=== PATIENT | female | born 1985 | race Caucasian/White ===

== ENCOUNTER 2016-12-14 09:23 | Emergency (ER) | payer OTHER ==
[2016-12-14 10:13] LABS: % IMMATURE GRANULYOCYTES 0.2 % (0.0-1.1); ABSOLUTE IMMATURE GRANULOCYTES 0.01 10^3/uL (0.00-0.10); ADD DIFF? NO; ADD MORPH? NO; ADD SCAN? NO; ATYPICAL LYMPHOCYTE FLAG 20 (0-99); FRAGMENT RBC FLAG 0 (0-99); HEMATOCRIT 39.3 % (38.0-47.0); HEMOGLOBIN 13.6 g/dL (12.6-16.3); LEFT SHIFT FLG 0 (0-99); LIPEMIA HEMOLYSIS FLAG 90 (0-99); MEAN CELL HEMOGLOBIN 34.2 pg (27.9-34.1); MEAN CELL HEMOGLOBIN CONCENTR. 34.6 g/dL (32.4-36.7); MEAN CELL VOLUME 98.7 fL (81.5-99.8); MEAN PLATELET VOLUME 11.8 fL (8.7-11.7); PLATELET CLUMPS FLAG 30 (0-99); PLATELET COUNT 176 10^3/uL (150-400); RED BLOOD CELL COUNT 3.98 10^6/uL (4.18-5.33); RED CELL DISTRIBUTION WIDTH 11.9 % (11.5-15.2)
[2016-12-14 10:32] LABS: ANION GAP 9 mEq/L (8-16); CALCIUM 9.4 mg/dL (8.5-10.4); CARBON DIOXIDE 23 mEq/l (22-31); CHLORIDE 108 mEq/L (97-110); CREATININE 0.6 mg/dL (0.6-1.0); GLOMERULAR FILTRATION RATE > 60; GLUCOSE 87 mg/dL (70-100); POTASSIUM 4.2 mEq/L (3.5-5.2); SODIUM 140 mEq/L (134-144)
[2016-12-14 10:38] LABS: ALBUMIN 4.1 g/dL (3.5-5.0); BILIRUBIN,TOTAL 0.8 mg/dL (0.1-1.4); BILIRUBIN-CONJUGATED 0.3 mg/dL (0.0-0.5); BILIRUBIN-UNCONJUGATED 0.5 mg/dL (0.0-1.1); TOTAL PROTEIN 6.6 g/dL (6.3-8.2)
[2016-12-14] MEDS ORDERED: PANTOPRAZOLE SODIUM 40 MG in NS 100 ML IV ONE (10:42)
[2016-12-14] MEDS ORDERED: NS 1,000 ML IV ONE (10:43)
--- NOTE | 2016-12-14 10:49 | EDPHY ---
H & P Smoking Status: Never smoked Time Seen by Provider: 12/14/16 10:09 HPI/ROS: CHIEF COMPLAINT: Dysphagia HISTORY OF PRESENT ILLNESS: 31-year-old female presents to the emergency department complaining of dysphagia and indigestion over last few days. Patient denies any known trauma or injury. She states that any time she tries to eat or drink anything she developed discomfort in her chest. She has no other abdominal pain. She was constipated last week and took some medication for this. She states that she is able to drink very little because the discomfort. She has vomited food and water back up. She denies any other chest pain. She denies diarrhea. Denies neck or back pain. Last menstrual period was 12/01/2016. She has tried taking [id number] Prilosec for last 2 days without relief. REVIEW OF SYSTEMS: Constitutional: No fever, no chills. Eyes: No double or blurry vision. ENT: No sore throat. Respiratory: No cough, no shortness of breath. Cardiac: As above Gastrointestinal: No abdominal pain, vomiting or diarrhea. Genitourinary: No dysuria. Musculoskeletal: No neck or back pain. Skin: No rashes. Neurological: No headache. (AyleenRoxann jarvis) Past Medical/Surgical History: Negative (AyleenRoxann jarvis) Social History: and lives in [place], she works as a nurse. (AyleenRoxann jarvis) Physical Exam: General Appearance: Alert, no distress. Vital signs are stable. Eyes: Pupils equal and round. Extraocular motions are all intact. ENT: Mouth: Mucous membranes moist. Respiratory: No wheezing, rhonchi, or rales, lungs are clear to auscultation. Cardiovascular: Regular rate and rhythm. Gastrointestinal: Abdomen is soft and nontender, no masses, no rebound or guarding, bowel sounds normal. No CVA tenderness bilaterally. Neurological: Alert and oriented x 3, cranial nerves II through XII grossly intact Skin: Warm and dry, no rashes. Musculoskeletal: Nontender to palpate along the cervical, thoracic or lumbar spine. Neck is supple. Extremities: Full range of motion and no peripheral edema. Psychiatric: Patient is oriented X 3, there is no agitation. (AyleenRoxann jarvis) Constitutional: Initial Vital Signs Temperature (C) 36.7 C 12/14/16 09:26 Heart Rate 68 12/14/16 09:26 Respiratory Rate 20 12/14/16 09:26 Blood Pressure 141/90 H 12/14/16 09:26 O2 Sat (%) 99 12/14/16 09:26 O2 Delivery Mode Room Air Allergies/Adverse Reactions: No Known Allergies Allergy (Unverified 12/14/16 09:26) Home Medications: Medication Instructions Recorded Gaviscon Liquid 12/14/16 Pepcid 12/14/16 Medical Decision Making - Diagnostics Imaging: I viewed and interpreted images myself ED Course/Re-evaluation: 31-year-old female presents to the emergency department with what she is describing his bad heartburn for last few days. Her laboratory studies were unremarkable. Chest x-rays unremarkable. I initially spoke with Dr. Gordon who states that he was on-call for the emergency department, however because the patient is unassigned in his never seen a chamber magistrate, he recommended calling G[facility]ology of the [facility] [place]. I spoke with Dr. Gutierres was on-call for [facility] of [facility] and he agreed to see this patient tomorrow. They will likely schedule for endoscopy. Patient was instructed to return if she developed difficulty swallowing or breathing, or if she felt worse in any way. The case was also discussed with Dr. Janie Kang, who did not directly evaluate the patient but agrees with treatment and plan. (Roxann Donald) Differential Diagnosis: Including but not limited to GERD, peptic ulcer disease, esophageal stricture, esophagitis, cholecystitis, cholelithiasis, pancreatitis, H pylori (Roxann Donald) Other Provider: The patient was evaluated and managed by the Physician Machine Filler Servicer/ Nurse Practitioner. I discussed the patient's presentation and course with the midlevel provider with them and agree with the evaluation. My co-signature indicates that I have reviewed this chart and I agree with the findings and plan of care as documented. I am the secondary supervising physician. (Janie Kang) - Data Points Laboratory Results: Laboratory Results 12/14/16 09:55 12/14/16 09:55 Medications Given: Discontinued Medications Pantoprazole Sodium 40 mg/ (Sodium Chloride) 100 mls @ 200 mls/hr IV EDNOW ONE Stop: 12/14/16 11:11 Last Admin: 12/14/16 11:10 Dose: 100 mls Sodium Chloride (Ns) 1,000 mls @ 0 mls/hr IV ONCE ONE PRN Reason: Wide Open Stop: 12/14/16 10:44 Last Admin: 12/14/16 11:10 Dose: 1,000 mls Departure - Departure Disposition: Home, Routine, Self-Care Clinical Impression: GERD (gastroesophageal reflux disease) Condition: Good Instructions: Gastroesophageal Reflux Disease (ED) Additional Instructions: Continue Prilosec daily. Call GI the [facility] and schedule follow-up appointment to have an endoscopy today or tomorrow. Referrals: Ang Gutierres MD [Medical Doctor] - 1 day without fail (Fax Machine Operator on-call)
[2016-12-14 13:50] VITALS: BP 113/77; PULSE 69; RESP 18; TEMP 98.4; O2SAT 98
== END 2016-12-14 13:47 | disposition home or self-care (01) ==
DX: K21.9 Gastro-esophageal reflux disease without esophagitis (principal)
CPT/HCPCS: 96365